=== PATIENT | female | born 1970 | race Caucasian/White ===

== ENCOUNTER 2019-06-28 11:36 | Emergency (ER) | payer MEDICARE, MEDICAID ==
[~2019-06-28] VITALS: Ht 149.9 cm; Wt 35.5 kg
[2019-06-28 11:52] VITALS: Ht 149.9 cm; Wt 35.5 kg
[2019-06-28] MEDS ORDERED: BIPOLAR MED (11:54)
[2019-06-28 12:32] VITALS: BP 104/63
== END 2019-06-28 12:51 | disposition home or self-care (01) ==
LOC: D.ER 11:36
DX: Z43.3 Encounter for attention to colostomy (principal)

== ENCOUNTER 2019-06-29 12:18 | Emergency (ER) | payer MEDICARE, MEDICAID ==
[~2019-06-29] VITALS: Ht 149.9 cm; Wt 36.5 kg
[~2019-06-29 12:18] MED LIST: BIPOLAR MED
[2019-06-29 12:24] VITALS: Ht 149.9 cm; Wt 36.5 kg
[2019-06-29 14:18] VITALS: BP 106/72
--- NOTE | 2019-06-30 13:40 | NUR ---
Late entry for 06/29/19 Patient returned to ER today for a colostomy bag. CM met with patient who had been given 2 colostomy bags 06/28/19. CM asked the patient who her PCP was that was ordering her supplies and she stated a physician in [place]. CM asked if she had contacted him to inform him she needed supplies ordered. She stated yes and her supplies will be here in August. CM infmored her that the ER was not able to supply her with colostomy bags everyday. She stated she knows. CM asked who her manufacturing helper for her supplies is and she told me [employer]. She gave CM permission to call on Monday to inquire about her supplies and what is needed to oanh her colostomy supplies to her before August. Pateint had multiple towels covered in feces, feces all in the floor, and feces contantly coming out of her ostomy. She has had her colostomy for 8 years and she said she knows how to care for her ostomy. CM spoke to human resources supervisor Tatiana Aguilera regarding situation and that I planend to call her ostomy company first thing on Monday AM. Patient is a resident at [facility]. CM is not sure how long she has been there but feel it is fairly recent as the courtesy car driver for her did not know her name when he showed up to pick her up. Cha Law RN, CCM
== END 2019-06-29 14:19 | disposition home or self-care (01) ==
LOC: D.ER 12:18
DX: Z43.3 Encounter for attention to colostomy (principal)

== ENCOUNTER 2019-09-20 13:33 | Emergency (ER) | payer MEDICARE ==
[2019-09-20 13:43] VITALS: Ht 149.9 cm
[2019-09-20 15:39] VITALS: BP 122/62
== END 2019-09-20 15:41 | disposition home or self-care (01) ==
LOC: D.ER 13:33
DX: Z43.3 Encounter for attention to colostomy (principal)

== ENCOUNTER 2019-10-02 13:59 | Emergency (ER) | payer MEDICARE ==
[~2019-10-02] VITALS: Ht 149.9 cm; Wt 38.6 kg
[2019-10-02 14:08] VITALS: BP 157/77; Ht 149.9 cm; Wt 38.6 kg
== END 2019-10-02 16:57 | disposition home or self-care (01) ==
LOC: D.ER 13:59
DX: Z43.3 Encounter for attention to colostomy (principal)

== ENCOUNTER 2019-12-14 18:13 | Emergency (ER) | payer OTHER, MEDICARE ==
[~2019-12-14] VITALS: Ht 149.9 cm; Wt 38.6 kg
[2019-12-14 18:19] VITALS: Ht 149.9 cm; Wt 38.6 kg
[2019-12-14 18:51] VITALS: BP 128/74
== END 2019-12-14 18:52 | disposition home or self-care (01) ==
LOC: D.ER 18:13
DX: T85.848A Pain due to other internal prosthetic devices, implants and grafts, initial encounter (principal)

== ENCOUNTER 2019-12-30 14:32 | Emergency (ER) | payer OTHER, MEDICARE ==
[~2019-12-30] VITALS: Ht 149.9 cm; Wt 34.1 kg
[2019-12-30 14:46] VITALS: BP 100/67; Ht 149.9 cm; Wt 34.1 kg
[2019-12-30] MEDS ORDERED: ABILIFY10 MG PO (14:47)
[2019-12-30 15:49] LABS: BASOPHILS 0.8 % (0-2); EOSINOPHILS 2.9 % (0-7); HEMATOCRIT 39.1 % (36.0-48.0); HEMOGLOBIN 11.4 g/dL (12-16); IMMATURE GRANULOCYTES 0.2 % (0-5); LYMPHOCYTES 36.6 % (15-50); MCH 24.6 pg (26.0-34.0); MCHC 29.2 g/dL (31.0-37.0); MCV 84.4 fL (80.0-100.0); MEAN PLATELET VOLUME 8.3 fL (7.4-10.4); MONOCYTES 10.2 % (2-11); NEUTROPHILS 49.3 % (40-80); PLATELET COUNT 443 10x3/uL (130-400); RBC 4.63 10x6/uL (4.00-5.40); WBC 6.6 10x3/uL (4.8-10.8)
[2019-12-30 16:03] LABS: CALC OSMOLALITY 277 mosm/kg (275-300); CALCIUM 9.1 mg/dL (8.5-10.1); CARBON DIOXIDE 25.6 mmol/L (21.0-32.0); CHLORIDE - SERUM 103 mmol/L (98-107); CREATININE - SERUM 0.6 mg/dL (0.6-1.3); GLUCOSE 88 mg/dL (74-106); POTASSIUM - SERUM 3.8 mmol/L (3.5-5.1); SODIUM 140 mmol/L (136-145); UREA NITROGEN 12 mg/dL (7-18); eGFR NON AFRICAN AMERICAN > 90 mL/min (90-120)
[2019-12-30] MEDS ORDERED: KEFLEX500 MG PO (16:35)
== END 2019-12-30 16:43 | disposition home or self-care (01) ==
LOC: D.ER 14:32
PROVIDERS: Family Medicine
DX: Z43.3 Encounter for attention to colostomy (principal); K94.09 Other complications of colostomy

== ENCOUNTER 2020-02-24 21:32 | Observation (INO) | payer MEDICARE ==
[~2020-02-24] VITALS: Ht 149.9 cm; Wt 36.3 kg
[~2020-02-24 21:32] MED LIST changes: +ABILIFY10 MG PO; +KEFLEX500 MG PO
[2020-02-24 22:27] LABS: BASOPHILS 0.4 % (0-2); EOSINOPHILS 2.4 % (0-7); HEMATOCRIT 38.9 % (36.0-48.0); HEMOGLOBIN 12.4 g/dL (12-16); IMMATURE GRANULOCYTES 0.1 % (0-5); LYMPHOCYTES 32.4 % (15-50); MCH 25.6 pg (26.0-34.0); MCHC 31.9 g/dL (31.0-37.0); MCV 80.2 fL (80.0-100.0); MEAN PLATELET VOLUME 8.9 fL (7.4-10.4); MONOCYTES 8.3 % (2-11); NEUTROPHILS 56.4 % (40-80); RBC 4.85 10x6/uL (4.00-5.40); WBC 7.9 10x3/uL (4.8-10.8)
[2020-02-24 22:31] LABS: APTT 42.1 SECONDS (22.8-39.4); INR 1.04 (0.85-1.17); PROTIME 13.5 SECONDS (11.6-15.0)
[2020-02-24 22:34] LABS: CALC OSMOLALITY 276 mosm/kg (275-300); CALCIUM 9.8 mg/dL (8.5-10.1); CARBON DIOXIDE 21.2 mmol/L (21.0-32.0); CHLORIDE - SERUM 106 mmol/L (98-107); CREATININE - SERUM 0.8 mg/dL (0.6-1.3); GLUCOSE 89 mg/dL (74-106); POTASSIUM - SERUM 5.1 mmol/L (3.5-5.1); SODIUM 138 mmol/L (136-145); UREA NITROGEN 19 mg/dL (7-18); eGFR NON AFRICAN AMERICAN 80 mL/min (90-120)
[2020-02-24 22:45] LABS: PLATELET COUNT 335 10x3/uL (130-400)
[2020-02-24 22:49] LABS: ALKALINE PHOSPHATASE 64 U/L (30-120); ALT (SGPT) 18 U/L (10-68); BILIRUBIN - TOTAL 0.25 mg/dL (0.2-1.3); C-REACTIVE PROTEIN 0.5 mg/dL (0.0-0.9); CREATINE KINASE 148 UL (21-215); LIPASE 160 U/L (73-393); MAGNESIUM - SERUM 1.7 mg/dL (1.8-2.4); PRO BNP 147 pg/mL (0-125); PROTEIN - SERUM 8.2 g/dL (6.4-8.2); THYROID STIMULATING HORMONE 0.81 uIU/mL (0.36-3.74); TROPONIN-I < 0.017 ng/mL (0.000-0.060)
--- NOTE | 2020-02-24 23:37 | NUR ---
RN ADMINISTERED ATIVAN ORDERED. PT TOLERATED WELL. PT PROVIDED ABD PAD TO ABSORB GASTRIC CONTENTS. EDP ADVISED NOT TO APPLY NEW COLOSTOMY BAG D/T REDNESS AND TENDERNESS TO SITE
[2020-02-25 00:12] LABS: BILIRUBIN NEGATIVE (NEGATIVE); GLUCOSE NEGATIVE (NEGATIVE); KETONE NEGATIVE (NEGATIVE); NITRITE NEGATIVE (NEGATIVE); SPECIFIC GRAVITY 1.025 (1.005-1.020); UROBILINOGEN NORMAL (NORMAL)
[2020-02-25 00:19] LABS: UDS - AMPHET NEGATIVE QUAL (NEGATIVE); UDS - BARB NEGATIVE QUAL (NEGATIVE); UDS - BENZO NEGATIVE QUAL (NEGATIVE); UDS - COCAINE NEGATIVE QUAL (NEGATIVE); UDS - OPIATE NEGATIVE QUAL (NEGATIVE); UDS - PCP NEGATIVE QUAL (NEGATIVE); UDS - THC NEGATIVE QUAL (NEGATIVE)
--- NOTE | 2020-02-25 00:55 | NUR ---
PT RETURNED TO ED VIA WC FROM CT. PT PROVIDED NEW GOWN, LINENS CHANGED. PT DROWSY AFTER RECEIVING IV ATIVAN.
[2020-02-25 01:07] VITALS: BP 115/61
[2020-02-25 03:54] VITALS: BP 100/59; BMI 16.2
--- NOTE | 2020-02-25 08:40 | NUR ---
PT RESTLESS IN BED, MOANING LOUDLY. ASSESSED PT OSTOMY SITE TO RIGHT ABDOMEN PT DESCRIBES EXCRUTIATING PAIN. AREA AROUND STOMA BRIGHT RED WITH OPEN AREAS NOTED TO SKIN. OSTOMY PRODUCING LIQUID GREEN STOOL AT THIS TIME. CLEANED SITE WELL, APPLIED DRESSING OVER AREA. CONTACTED WOUND NURSE FOR ASSESSMENT AND RECOMMENDATION FOR DRESSING SITE OR APPROPRIATE OSTOMY DRESSING. EXPLAINED TO PT. PT VOICES UNDERSTANDING. CL WITHIN REACH. ENCOURAGED TO CALL WITH NEEDS.
[2020-02-25 09:01] VITALS: BP 108/56
[2020-02-25 10:08] LABS: BASOPHILS 0.8 % (0-2); EOSINOPHILS 3.6 % (0-7); HEMATOCRIT 39.6 % (36.0-48.0); HEMOGLOBIN 12.3 g/dL (12-16); LYMPHOCYTES 38.6 % (15-50); MCH 25.3 pg (26.0-34.0); MCHC 31.1 g/dL (31.0-37.0); MCV 81.5 fL (80.0-100.0); MEAN PLATELET VOLUME 8.5 fL (7.4-10.4); MONOCYTES 8.6 % (2-11); NEUTROPHILS 48.4 % (40-80); PLATELET COUNT 306 10x3/uL (130-400); RBC 4.86 10x6/uL (4.00-5.40); RDW 15.9 % (11.5-14.5)
--- NOTE | 2020-02-25 10:30 | NUR ---
WOUND NURSE HERE AND APPLIED APPROPRIATE COLOSTOMY BAG TO PT OSTOMY SITE.
--- NOTE | 2020-02-25 11:56 | NUR ---
DR. LING AT BEDSIDE WITH STEPHEN LI APN. ENTERED PT ROOM TO ADMINISTER PRESCRIBED PAIN MED. PT RESTLESS, AND MOANING AGAIN OSTOMY BAG IS LEAKING. VOICES BURNING TO AREA. PAIN MEDICATION ADMINISTERED. VERBAL ORDER RECEIVED FOR SURGICAL CONSULT.
--- NOTE | 2020-02-25 12:25 | NUR ---
WOUND NURSE AT BEDSIDE TO REAPPLY OSTOMY BAG. PT VOICES DECREASED PAIN AT THIS TIME, "ITS NOT THAT BAD LONG THE POOP IS GETTING ON MY SKIN." WILL CONTINUE TO REASSESS FOR PAIN
--- NOTE | 2020-02-25 12:29 | NUR ---
EXCORIATED SKIN NOTED AROUND STOMA ON RIGHT LOWER ABD QUAD. SKIN IS RED, IRRITATED AND RAW. PT SAYS IT IS DUE TO NOT HAVING OSTOMY SUPPLIES. AREA CLEANSED AND PATTED DRY. APPLIED NONSTING SKIN PROTECTANT AND STOMA POWDER AND APPLIED NEW WAFER, EAKON RING, BAG AND BARRIER EXTENDERS. PT IS CONTINUALLY "BEARING DOWN", EXTENDING HER ABDOMEN AND YELLING. AFTER APPROX 20 MIN PT YELLING AGAIN STATING "IT'S LEAKING". ENTIRE APPLIANCE REMOVED AND DISCARDED. SKIN CLEANSED AND DRIED. PT REFUSED SKIN PROTECTANT BUT ALLOWED POWDER. EAKON RING, WAFER, BAG AND BARRIER EXTENDERS APPLIED ALONG WITH A SMALL HEATING PAD OVER AREA TO ENHANCE ADHESION. WOUND CARE CONTINUES TO MONITOR.
[2020-02-25 12:37] VITALS: BP 116/47
[2020-02-25 13:12] VITALS: BMI 16.1
--- NOTE | 2020-02-25 14:55 | MORECARE ---
CASE MANAGEMENT DISCHARGE SUMMARY PATIENT: SHILPA ORO UNIT: [id number] ADM DATE: 02/25/20 AGE: 49 : 68 SEX: F ROOM/BED: D.2201 AUTHOR: GABBY GEE PHYSICIAN: REFERRING PHYSICIAN: HEATHER LING DO DATE OF SERVICE: 02/25/20 Discharge Plan Patient Name: SHILPA ORO [facility] [facility] 1970 Planned Disposition: Anticipated Discharge Date: Discharge Date: Expected LOS: Initial Reviewer: [email or web address] Initial Review Date: 02/25/2020 Generated: 02/25/20 3:55 pm Comments DCP- Discharge Planning Updated by [email or web address]: Juju Badillo on 02/25/20 1:[address] Per EHR, ARIANNA Lentz explained and signed with patient. Copy in chart Coverage Notice Reviewer: [id number] - Juju Badillo Notice Issued Date-Time: 02/25/2020 14:45 Notice Type: Medicare Outpatient Observation Notice Notice Delivered To: Patient Relationship to Patient: Containers Sales Representative Name: Delivery Method: HAND - Hand Delivered Essence Days: Prior Verbal Notification: Recipient Understood Notice: Yes Recipient Signature: Yes Med Rec Note Co-signed by Attending: Coverage Notice Comment: arianna explained and given Patient Name: SHILPA ORO Page [id number] at 1455 All edits/amendments must be made on the electronic document DICTATION DATE: 02/25/20 145 TOP CASE ASSEMBLER: ODILON 02/25/20 1455 RPT#: [id number] DC DATE: STATUS: ADM IN [facility] [address] [place] [address] END OF REPORT
[2020-02-25 16:47] VITALS: BP 161/87
[2020-02-25 18:16] VITALS: Ht 149.9 cm; Wt 36.3 kg
[2020-02-25 20:00] VITALS: BP 119/83
[2020-02-26] VITALS: BP 113/62
--- NOTE | 2020-02-26 01:49 | NUR ---
0N ARRIVAL TO FLOOR FOUND PATIENT IN [place] CRYING ASSISTED BACK TO ROOM.STATES I TOOK IT OFF HURTS TO BAD WHEN BAG IS ON. LINENS/GOWN CHGED.DISCUSSED IMPORTANCE OF KEEPING BAG ON NOT TO LET DRAINAGE GET ON UNEFFECTIVE SKIN AND START NEW IRRITATED AREAS STATES IT HURTS. WILL CONTINUE TO MONITOR AND FOLLOW CURRENT PLAN OF CARE
[2020-02-26 04:00] VITALS: BP 110/59
[2020-02-26 05:23] LABS: BASOPHILS 0.4 % (0-2); EOSINOPHILS 3.7 % (0-7); HEMATOCRIT 39.8 % (36.0-48.0); HEMOGLOBIN 12.2 g/dL (12-16); IMMATURE GRANULOCYTES 0.1 % (0-5); LYMPHOCYTES 33.2 % (15-50); MCH 24.8 pg (26.0-34.0); MCHC 30.7 g/dL (31.0-37.0); MCV 81.1 fL (80.0-100.0); MEAN PLATELET VOLUME 9.3 fL (7.4-10.4); MONOCYTES 10.4 % (2-11); NEUTROPHILS 52.2 % (40-80); PLATELET COUNT 265 10x3/uL (130-400); RBC 4.91 10x6/uL (4.00-5.40); RDW 15.9 % (11.5-14.5)
[2020-02-26 05:34] LABS: ALBUMIN 3.9 g/dL (3.4-5.0); ALKALINE PHOSPHATASE 62 U/L (30-120); ALT (SGPT) 16 U/L (10-68); BILIRUBIN - TOTAL 0.07 mg/dL (0.2-1.3); CARBON DIOXIDE 20.4 mmol/L (21.0-32.0); CHLORIDE - SERUM 108 mmol/L (98-107); CREATININE - SERUM 0.8 mg/dL (0.6-1.3); GLUCOSE 101 mg/dL (74-106); MAGNESIUM - SERUM 1.8 mg/dL (1.8-2.4); PROTEIN - SERUM 7.4 g/dL (6.4-8.2); SODIUM 140 mmol/L (136-145); eGFR NON AFRICAN AMERICAN 80 mL/min (90-120)
[2020-02-26 05:37] LABS: CALC OSMOLALITY 283 mosm/kg (275-300); POTASSIUM - SERUM 3.8 mmol/L (3.5-5.1); UREA NITROGEN 27 mg/dL (7-18)
--- NOTE | 2020-02-26 07:00 | NUR ---
PT RESTING IN BED. NO OSTOMY BAG TO OSTOMY SITE AT THIS TIME. PT HOLDING ABD PAD OVER AREA TO CATCH STOOL. EDUCATED PT REGARDING COLOSTOMY BAG, PT DENIES WISHES FOR BAG AT THIS TIME, SHE VOICES THEY DON'T SEEM TO BE WORKING, THE BAG STARTS LEAKING. INFORMED HER STAFF WOULD TALK TO WOUND NURSE REGARDING MATTER TO ATTEMPT TO FIND A BETTER FITTING METHOD TO PREVENT FURTHER SKIN IRRITATION. PT VOICES UNDERSTANDING. SALINE LOC TO LEFT FOREARM. SITE WITHOUT REDNESS OR EDEMA. REPORTS PAIN 3/10 AT THIS TIME. DENIES FURTHER NEEDS AT THIS TIME. CL WITHIN REACH. ENCOURAGED TO CALL WITH NEEDS. CONTINUE POC
[2020-02-26 09:10] VITALS: BP 104/58
--- NOTE | 2020-02-26 10:15 | NUR ---
PT IV TO LEFT FOREARM LEAKING AND PUFFY AT SITE. IV D/C'D. IV RESITED TO RIGHT FOREARM X 2 STICKS. GOOD BLOOD RETURN, EASILY FLUSHES. DENIES FURTHER NEEDS A THIS TIME. CL WITHIN REACH.
[2020-02-26] MEDS ORDERED: NICODERM CQ1 EAC3 TRANSDERM (10:45)
--- NOTE | 2020-02-26 12:10 | NUR ---
PT RESTING QUIETLY IN BED. COLOSTOMY BAG REMAINS INTACT TO RIGHT ABDOMEN WALL, DRAINING GREEN BILE. PT REQUEST DRINK AT THIS TIME. WATER AND LEMON [place] DRINK PROVIDED
--- NOTE | 2020-02-26 12:13 | NUR ---
Upon checking pt this morning, noted ostomy appliance was off and pt and her bed covered in green liquid feces. She was cleaned up, new gown and linens provided. Skin surrounding stoma is red but is not as angry red as yesterday. Applied skin barrier, powder x 3 and allowed to dry. Then mixed paste with powder and applied to wafer with adhesive to skin surrounding stoma. Cut wafer to 1-1/4" and applied to skin. Pt stated it burned, but settled down and allowed completion of application. Pt states she uses [employer] for supplies at home. [facility] was called and a prescription faxed to their office. Wound care continues to monitor.
[2020-02-26] MEDS ORDERED: HYDROCODON-ACE1 EAC7 PO (13:17)
--- NOTE | 2020-02-26 14:18 | MORECARE ---
CASE MANAGEMENT DISCHARGE SUMMARY PATIENT: SHILPA ORO UNIT: [id number] ADM DATE: 02/25/20 AGE: 49 : 68 SEX: F ROOM/BED: D.2201 AUTHOR: GABBY GEE PHYSICIAN: REFERRING PHYSICIAN: HEATHER LING DO DATE OF SERVICE: 02/26/20 Discharge Plan Patient Name: SHILPA ORO [facility] [facility] 1970 Planned Disposition: Home Health Service Anticipated Discharge Date: Discharge Date: Expected LOS: Initial Reviewer: [email or web address] Initial Review Date: 02/25/2020 Generated: 02/26/20 3:18 pm Comments DCP- Discharge Planning Updated by [email or web address]: Juju Badillo on 02/25/20 1:[address] Per EHR, ARIANNA Lentz explained and signed with patient. Copy in chart Coverage Notice Reviewer: [id number] - Juju Badillo Notice Issued Date-Time: 02/25/2020 14:45 Notice Type: Medicare Outpatient Observation Notice Notice Delivered To: Patient Relationship to Patient: Clinical Psychology Professor Name: Delivery Method: HAND - Hand Delivered Essence Days: Prior Verbal Notification: Recipient Understood Notice: Yes Recipient Signature: Yes Med Rec Note Co-signed by Attending: Coverage Notice Comment: arianna explained and given Last DP export: 02/25/20 1:55 p Patient Name: SHILPA ORO Page 54081 at 1418 All edits/amendments must be made on the electronic document DICTATION DATE: 02/26/208 PHARMACEUTICAL DETAILER: ODILON 02/26/20 1418 RPT#: [id number] DC DATE: STATUS: ADM IN [facility] [address] [place] [address] END OF REPORT
--- NOTE | 2020-02-26 14:31 | MORECARE ---
CASE MANAGEMENT DISCHARGE SUMMARY PATIENT: SHILPA ORO UNIT: [id number] ADM DATE: 02/25/20 AGE: 49 : 68 SEX: F ROOM/BED: D.2201 AUTHOR: GABBY GEE PHYSICIAN: REFERRING PHYSICIAN: HEATHER LING DO DATE OF SERVICE: 02/26/20 Discharge Plan Patient Name: SHILPA ORO Facility: [facility] : 1970 Planned Disposition: Home Health Service Anticipated Discharge Date: Discharge Date: Expected LOS: Initial Reviewer: [email or web address] Initial Review Date: 02/25/2020 Generated: 02/26/20 3:30 pm Comments DCP- Discharge Planning Updated by [email or web address]: Juju Badillo on 02/25/20 1:[address] Per EHR, ANA Lentz explained and signed with patient. Copy in chart DCPIA - Discharge Planning Initial Assessment Updated by [email or web address]: Juju Badillo on 02/26/20 2:29 pm * Is the patient Alert and Oriented? Yes * How many steps to enter\exit or inside your home? * PCP ELIZA * Pharmacy [facility] * Pread[facility] * Facility Name [facility] * ADLs Independent * Equipment Ostomy Supplies * List name and contact numbers for known caregivers / representatives who currently or will assist patient after discharge: SLADE [phone] * Verbal permission to speak to the caregivers and representatives has been obtained from the patient. N/A * Community resources currently utilized None * Additional services required to return to the preadmission environment? Yes * Can the patient safely return to the preadmission environment? Yes * Has this patient been hospitalized within the prior 30 days at any hospital? No Coverage Notice Reviewer: [id number] - Juju Badillo Notice Issued Date-Time: 02/25/2020 14:45 Notice Type: Medicare Outpatient Observation Notice Notice Delivered To: Patient Relationship to Patient: Jig Mill Operator Name: Delivery Method: HAND - Hand Delivered Essence Days: Prior Verbal Notification: Recipient Understood Notice: Yes Recipient Signature: Yes Med Rec Note Co-signed by Attending: Coverage Notice Comment: keller explained and given Last DP export: 02/26/20 1:18 p Patient Name: SHILPA ORO Page [phone] at 1431 All edits/amendments must be made on the electronic document DICTATION DATE: 02/26/201429 FURNACE DOOR TENDER: ODILON 02/26/201429 RPT#: [id number] DC DATE: STATUS: ADM IN [facility] [address] [place] [address] END OF REPORT
--- NOTE | 2020-02-26 14:39 | MORECARE ---
CASE MANAGEMENT DISCHARGE SUMMARY PATIENT: SHILPA ORO UNIT: [id number] ADM DATE: 02/25/20 AGE: 49 : 68 SEX: F ROOM/BED: D.2201 AUTHOR: GABBY GEE PHYSICIAN: REFERRING PHYSICIAN: HEATHER LING DO DATE OF SERVICE: 02/26/20 Discharge Plan Patient Name: SHILPA ORO Facility: [facility]:[place] : 1970 Planned Disposition: Home Health Service Anticipated Discharge Date: Discharge Date: Expected LOS: Initial Reviewer: [email or web address] Initial Review Date: 02/25/2020 Generated: 02/26/20 3:38 pm Comments DCP- Discharge Planning Updated by [email or web address]: Juju Badillo on 02/26/20 1:[address] Patient Name: SHILPA ORO Admission Status: ER Accout number: [id number] Admission Date: 02-25-2020 : 1970 Admission Diagnosis: Attending: HEATHER LING Current LOS: 1 Anticipated DC Date: Planned Disposition: Home Health Service Primary Insurance: [facility] MEDICARE SOLUTIONS Discharge Planning Comments: CM met with patient to complete initial dc planning assessment. CM educated patient on the CM role and verbal consent given by patient to complete assessment. Patient lives at a assisted off [facility] where she is independent with her care. At discharge patient plans to return home and feels this is a safe discharge. CM discussed availability of home health, rehab services, and medical equipment. She uses [facility] ostomy supplies and [facility] has spoken with her at length and has ordered and spoke with Andrew for what exactly the patient needs. We spoke about home health, but [facility] did not think that she needed it & the patient did not want to mess up her Ostomy supplies and home health would pause [facility]. Patient stated that " Sadiq" would be her motor driver home, and Slade [phone] can also get ahold of him, Patient denied known discharge needs at this time. CM will continue to follow and will assist as needed with dc plans/needs. Special Education Teacher: Juju Badillo DCP- Discharge Planning Updated by [email or web address]: Juju Badillo on 02/25/20 1:[address] Per EHR, ARIANNA Lentz explained and signed with patient. Copy in chart DCPIA - Discharge Planning Initial Assessment Updated by [email or web address]: Juju Badillo on 02/26/20 2:29 pm * Is the patient Alert and Oriented? Yes * How many steps to enter\\exit or inside your home? * PCP ELIZA * Pharmacy [facility] * Preadmission Environment [facility] * Facility Name [facility] * ADLs Independent * Equipment Ostomy Supplies * List name and contact numbers for known caregivers / representatives who currently or will assist patient after discharge: SLADE [phone] * Verbal permission to speak to the caregivers and representatives has been obtained from the patient. N/A * Community resources currently utilized None * Additional services required to return to the preadmission environment? Yes * Can the patient safely return to the preadmission environment? Yes * Has this patient been hospitalized within the prior 30 days at any hospital? No Coverage Notice Reviewer: [id number] - Juju Badillo Notice Issued Date-Time: 02/25/2020 14:45 Notice Type: Medicare Outpatient Observation Notice Notice Delivered To: Patient Relationship to Patient: Knife Setter Grinder Machine Name: Delivery Method: HAND - Hand Delivered Essence Days: Prior Verbal Notification: Recipient Understood Notice: Yes Recipient Signature: Yes Med Rec Note Co-signed by Attending: Coverage Notice Comment: arianna explained and given Last DP export: 02/26/20 1:31 p Patient Name: SHILPA ORO Page [phone] at 1439 All edits/amendments must be made on the electronic document DICTATION DATE: 02/26/201437 ROLLER INSPECTOR AND MENDER: ODILON 02/26/201437 RPT#: [id number] DC DATE: STATUS: ADM IN [facility] [address] [place] [address] END OF REPORT
--- NOTE | 2020-02-27 09:06 | MORECARE ---
CASE MANAGEMENT DISCHARGE SUMMARY PATIENT: SHILPA ORO UNIT: [id number] ADM DATE: 02/25/20 AGE: 49 : 68 SEX: F ROOM/BED: D.2201 AUTHOR: MARLENDOC PHYSICIAN: REFERRING PHYSICIAN: HEATHER LING DO DATE OF SERVICE: 02/27/20 Discharge Plan Patient Name: SHILPA ORO Facility: [facility]:[place] : 1970 Planned Disposition: Home Health Service Anticipated Discharge Date: Discharge Date: 02/26/2020 Expected LOS: Initial Reviewer: [email or web address] Initial Review Date: 02/25/2020 Generated: 02/27/20 10:06 am Comments DCP- Discharge Planning Updated by [email or web address]: Juju Badillo on 02/26/20 1:[address] Patient Name: SHILPA ORO Admission Status: ER Accout number: [id number] Admission Date: 02-25-2020 : 1970 Admission Diagnosis: Attending: HEATHER LING Current LOS: 1 Anticipated DC Date: Planned Disposition: Home Health Service Primary Insurance: [facility] MEDICARE SOLUTIONS Discharge Planning Comments: CM met with patient to complete initial dc planning assessment. CM educated patient on the CM role and verbal consent given by patient to complete assessment. Patient lives at a jail off [facility] where she is independent with her care. At discharge patient plans to return home and feels this is a safe discharge. CM discussed availability of home health, rehab services, and medical equipment. She uses [facility] ostomy supplies and [facility] has spoken with her at length and has ordered and spoke with [facility] for what exactly the patient needs. We spoke about home health, but [facility] did not think that she needed it & the patient did not want to mess up her Ostomy supplies and home health would pause [facility]. Patient stated that " Nenabolibby" would be her team driver home, and Patricia [phone] can also get ahold of him, Patient denied known discharge needs at this time. CM will continue to follow and will assist as needed with dc plans/needs. Preparer Samples And Repairs: Juju Badillo DCP- Discharge Planning Updated by [email or web address]: Juju Badillo on 02/25/20 1:[address] Per EHR, ARIANNA Lentz explained and signed with patient. Copy in chart DCPIA - Discharge Planning Initial Assessment Updated by [email or web address]: Juju Badillo on 02/26/20 2:29 pm * Is the patient Alert and Oriented? Yes * How many steps to enter\\exit or inside your home? * PCP ELIZA * Pharmacy [facility] * Preadmission Environment [facility] * Facility Name [facility] * ADLs Independent * Equipment Ostomy Supplies * List name and contact numbers for known caregivers / representatives who currently or will assist patient after discharge: PATRICIA [phone] * Verbal permission to speak to the caregivers and representatives has been obtained from the patient. N/A * Community resources currently utilized None * Additional services required to return to the preadmission environment? Yes * Can the patient safely return to the preadmission environment? Yes * Has this patient been hospitalized within the prior 30 days at any hospital? No Coverage Notice Reviewer: [id number] - Juuj Badillo Notice Issued Date-Time: 02/25/2020 14:45 Notice Type: Medicare Outpatient Observation Notice Notice Delivered To: Patient Relationship to Patient: White Shoe Examiner Name: Delivery Method: HAND - Hand Delivered Essence Days: Prior Verbal Notification: Recipient Understood Notice: Yes Recipient Signature: Yes Med Rec Note Co-signed by Attending: Coverage Notice Comment: arianna explained and given Last DP export: 02/26/20 1:39 p Patient Name: SHILPA ORO Page [phone] at 0906 All edits/amendments must be made on the electronic document DICTATION DATE: 02/27/20905 TEACHERS ASSISTANT: ODILON 02/27/20905 RPT#: [id number] DC DATE:02/26/20 STATUS: DIS IN [facility] [address] [place] [address] END OF REPORT
== END 2020-02-26 16:44 | disposition home or self-care (01) ==
LOC: D.ER 21:32 → D.MS 02-25 01:27 → OBSVTIME 02-25 01:27 → D.MS 02-26 16:44
PROVIDERS: Family Medicine; ADMIT Family Medicine; ATTEND Family Medicine
DX: L03.90 Cellulitis, unspecified (principal); R62.7 Adult failure to thrive; Z68.1 Body mass index [BMI] 19.9 or less, adult; R64 Cachexia; K76.9 Liver disease, unspecified; E83.42 Hypomagnesemia; K94.02 Colostomy infection

== ENCOUNTER 2020-03-03 17:55 | Emergency (ER) | payer MEDICARE ==
[~2020-03-03] VITALS: Ht 149.9 cm; Wt 34.1 kg
[~2020-03-03 17:55] MED LIST changes: +HYDROCODON-ACE1 EAC7 PO; +NICODERM CQ1 EAC3 TRANSDERM
[2020-03-03 18:26] VITALS: Ht 149.9 cm; Wt 34.1 kg
[2020-03-03 22:36] VITALS: BP 100/60
== END 2020-03-03 22:35 | disposition home or self-care (01) ==
LOC: D.ER 17:55
DX: R44.0 Auditory hallucinations (principal); R44.1 Visual hallucinations; Z43.3 Encounter for attention to colostomy

== ENCOUNTER 2020-03-07 13:23 | Emergency (ER) | payer MEDICARE ==
[~2020-03-07] VITALS: Ht 149.9 cm; Wt 34.1 kg
[2020-03-07 13:27] VITALS: Ht 149.9 cm; Wt 34.1 kg
[2020-03-07 14:39] LABS: BASOPHILS 0.6 % (0-2); EOSINOPHILS 3.3 % (0-7); HEMOGLOBIN 13.3 g/dL (12-16); IMMATURE GRANULOCYTES 0.1 % (0-5); LYMPHOCYTES 34.3 % (15-50); MCH 25.5 pg (26.0-34.0); MCHC 30.9 g/dL (31.0-37.0); MCV 82.5 fL (80.0-100.0); MEAN PLATELET VOLUME 8.4 fL (7.4-10.4); MONOCYTES 9.7 % (2-11); PLATELET COUNT 394 10x3/uL (130-400); RBC 5.21 10x6/uL (4.00-5.40); RDW 15.9 % (11.5-14.5); WBC 6.9 10x3/uL (4.8-10.8)
[2020-03-07 14:51] LABS: CALCIUM 9.3 mg/dL (8.5-10.1); CARBON DIOXIDE 25.3 mmol/L (21.0-32.0); CREATININE - SERUM 0.9 mg/dL (0.6-1.3); POTASSIUM - SERUM 3.3 mmol/L (3.5-5.1)
[2020-03-07 14:57] LABS: ALBUMIN 4.8 g/dL (3.4-5.0); BILIRUBIN - TOTAL 0.31 mg/dL (0.2-1.3); PROTEIN - SERUM 9.2 g/dL (6.4-8.2)
[2020-03-07] MEDS ORDERED: KEFLEX500 MG PO (15:06)
[2020-03-07 15:17] VITALS: BP 128/72
== END 2020-03-07 15:18 | disposition home or self-care (01) ==
LOC: D.ER 13:23
PROVIDERS: Family Medicine
DX: L03.311 Cellulitis of abdominal wall (principal); T85.9XXA Unspecified complication of internal prosthetic device, implant and graft, initial encounter; E87.6 Hypokalemia; T14.8XXA Other injury of unspecified body region, initial encounter

== ENCOUNTER 2020-03-08 12:09 | Inpatient (IN) | payer MEDICARE ==
[~2020-03-08] VITALS: Ht 149.9 cm; Wt 37.3 kg
[2020-03-08 15:49] LABS: BASOPHILS 0.7 % (0-2); EOSINOPHILS 2.6 % (0-7); HEMATOCRIT 40.2 % (36.0-48.0); HEMOGLOBIN 12.3 g/dL (12-16); IMMATURE GRANULOCYTES 0.1 % (0-5); LYMPHOCYTES 29.3 % (15-50); MCH 25.3 pg (26.0-34.0); MCHC 30.6 g/dL (31.0-37.0); MCV 82.7 fL (80.0-100.0); MEAN PLATELET VOLUME 8.4 fL (7.4-10.4); MONOCYTES 8.7 % (2-11); NEUTROPHILS 58.6 % (40-80); PLATELET COUNT 387 10x3/uL (130-400); RBC 4.86 10x6/uL (4.00-5.40)
--- NOTE | 2020-03-08 15:53 | NUR ---
ABD CLEAN, AND COLOSTOMY APPLIANCE CHANGED. PT TOLERATED WELL.
[2020-03-08 15:59] LABS: CALC OSMOLALITY 278 mosm/kg (275-300); CARBON DIOXIDE 25.8 mmol/L (21.0-32.0); CHLORIDE - SERUM 103 mmol/L (98-107); CREATININE - SERUM 0.7 mg/dL (0.6-1.3); GLUCOSE 106 mg/dL (74-106); POTASSIUM - SERUM 3.6 mmol/L (3.5-5.1); SODIUM 138 mmol/L (136-145); UREA NITROGEN 21 mg/dL (7-18); eGFR NON AFRICAN AMERICAN > 90 mL/min (90-120)
[2020-03-08 16:05] LABS: ALBUMIN 4.5 g/dL (3.4-5.0); ALKALINE PHOSPHATASE 64 U/L (30-120); ALT (SGPT) 17 U/L (10-68); BILIRUBIN - TOTAL 0.15 mg/dL (0.2-1.3); PROTEIN - SERUM 8.7 g/dL (6.4-8.2)
--- NOTE | 2020-03-08 17:58 | NUR ---
PATIENT PROVIDED WITH MEAL TRAY
[2020-03-08 21:04] VITALS: BP 145/81
--- NOTE | 2020-03-08 22:00 | NUR ---
A&O X 4, AMBULATES INDEPENDENTLY. WEIGHT 82.8LBS. REQUESTS CRACKERS AND SODA. DENIES PAIN/NEEDS AT THIS TIME, CTM.
[2020-03-08 22:45] VITALS: BP 103/74
--- NOTE | 2020-03-09 02:00 | NUR ---
PT INSISTS BEING REMOVED FROM FLUIDS. PT ITCHING LEGS AND SIDES(NO RASH/REDNESS), STATES IT'S FROM THE IV. PAUSED FLUIDS. INSTRUCTED PT WE COULD CALL FOR EVAN IF SHE IS ITCHING. PT WISHES TO STAY OFF FLUIDS BECAUSE ITCHING HAS STOPPED.
[2020-03-09 04:00] VITALS: BP 100/53
[2020-03-09 04:56] VITALS: BP 145/81; Ht 149.9 cm; Wt 37.3 kg
[2020-03-09 05:09] LABS: BASOPHILS 0.6 % (0-2); EOSINOPHILS 4.2 % (0-7); HEMATOCRIT 33.5 % (36.0-48.0); HEMOGLOBIN 10.1 g/dL (12-16); IMMATURE GRANULOCYTES 0.2 % (0-5); LYMPHOCYTES 42.4 % (15-50); MCH 24.8 pg (26.0-34.0); MCHC 30.1 g/dL (31.0-37.0); MCV 82.1 fL (80.0-100.0); MEAN PLATELET VOLUME 8.5 fL (7.4-10.4); MONOCYTES 10.9 % (2-11); NEUTROPHILS 41.7 % (40-80); RBC 4.08 10x6/uL (4.00-5.40); RDW 15.9 % (11.5-14.5)
[2020-03-09 05:16] LABS: PLATELET COUNT 280 10x3/uL (130-400)
[2020-03-09 05:17] LABS: CALC OSMOLALITY 276 mosm/kg (275-300); CALCIUM 7.9 mg/dL (8.5-10.1); CARBON DIOXIDE 24.1 mmol/L (21.0-32.0); CHLORIDE - SERUM 103 mmol/L (98-107); CREATININE - SERUM 0.7 mg/dL (0.6-1.3); GLUCOSE 106 mg/dL (74-106); POTASSIUM - SERUM 3.3 mmol/L (3.5-5.1); SODIUM 137 mmol/L (136-145); UREA NITROGEN 21 mg/dL (7-18); eGFR NON AFRICAN AMERICAN > 90 mL/min (90-120)
--- NOTE | 2020-03-09 06:50 | NUR ---
A&O RESTING IN BED WITH EYES OPEN. NO C/O PAIN. NO S/S OF ACUTE DISTRESS NOTED. COLOSTOMY TO ABDOMEN. IV TO RIGHT FOREARM, SL. PATIENT STATED SHE STARTS ITCHING WHEN THE FLUIDS ARE INFUSING. SITE PATENT WITHOUT REDNESS OR SWELLING. POTASSIUM 3.3 THIS AM. SCDS PRESENT. DENIES ANY NEEDS AT THIS TIME. CALL LIGHT IN REACH. WILL CONTINUE TO MONITOR.
[2020-03-09] MEDS ORDERED: NYSTATIN OINTME15 GM TOPICAL (07:46)
[2020-03-09] MEDS ORDERED: KEFLEX500 MG PO (07:48)
[2020-03-09 09:12] VITALS: BP 93/52
--- NOTE | 2020-03-09 11:20 | NUR ---
I have reviewed this patient and I concur with the Shift Assessment completed by the Licensed Practical Nurse today this shift.
[2020-03-09 12:38] VITALS: BP 117/71
--- NOTE | 2020-03-09 15:38 | NUR ---
PERISTOMAL SKIN IS RED AND IRRITATED. STOMA IS SHINY RED/HEALTHY. PT CRYING OUT BECAUSE LIQUID STOOL IS IRRITATING SKIN DUE TO OSTOMY WAFER BEING HALF WAY REMOVED. CLEANSED SURROUNDING SKIN WITH WASH CLOTH AND WATER AND PATTED DRY. APPLIED CAVILON SKIN PREP FOLLOWED BY STOMA POWDER AND REPEATED. STOMA MEASURES 1-1/8". WAFER CUT TO SIZE BUT PT REFUSES TO ALLOW STOMA PASTE TO BE APPLIED BECAUSE IT ZURITA. IT IS NECESSARY TO USE PASTE DUE TO THE UNEVEN SKIN AROUND STOMA. WAFER APPLIED WITHOUT PASTE. EXPLAINED TO PT THE WAFER WILL LEAK AND SKIN WILL CONTINUE TO BE IRRITATED IF SHE DOESN'T USE OR ALLOW US TO USE THE NEEDED PRODUCTS. SHE VOICED UNDERSTANDING.
--- NOTE | 2020-03-09 16:32 | MORECARE ---
CASE MANAGEMENT DISCHARGE SUMMARY PATIENT: SHILPA ORO UNIT: [id number] ADM DATE: 03/08/20 AGE: 49 : 68 SEX: F ROOM/BED: D.2216 AUTHOR: GABBY GEE PHYSICIAN: REFERRING PHYSICIAN: LOS PARDO MD DATE OF SERVICE: 03/09/20 Discharge Plan Patient Name: SHILPA ORO Facility: [facility]:[place] : 1970 Planned Disposition: Anticipated Discharge Date: Discharge Date: Expected LOS: Initial Reviewer: [id number] Initial Review Date: 03/08/2020 Generated: 03/09/20 5:31 pm Comments DCP- Discharge Planning Updated by [email or web address]: Eleonora Corrales on 03/09/20 3:[address] Patient Name: SHILPA ORO Admission Status: ER Accout number: [id number] Admission Date: 03-08-2020 : 1970 Admission Diagnosis: Attending: LOS PARDO Current LOS: 1 Anticipated DC Date: Planned Disposition: Primary Insurance: [facility] MEDICARE SOLUTIONS Discharge Planning Comments: Patient lives at a skilled nursing off [facility] where she is independent with her care. At discharge patient plans to return home and feels this is a safe discharge. CM discussed availability of home health, rehab services, and medical equipment. She uses [facility] ostomy supplies. DIANA RN WITH WOUND CARE SPOKE WITH PATIENT. WE ARE SENDING HER HOME WITH SEVERAL DAYS OF SUPPLIES. SHE IS CURRENTLY GETTING SUPPLIES FROM [employer] BUT SEEMS TO BE USING ALOT MORE SUPPLIES THAN SHE SHOULD. TEACHING HAS BEEN DONE BY WOUND CARE NURSE. PATIENT TO DC TO HOME, RIDE AT BEDSIDE. CM TO FOLLOW AND ASSIST NEEDED. Machine Splitter: Eleonora Savanna Patient Name: SHILPA ORO Page [phone] at 1632 All edits/amendments must be made on the electronic document DICTATION DATE: 03/09/20 1631 NAILHEAD SETTER: ODILON 03/09/20 1631 RPT#: [id number] DC DATE: STATUS: ADM IN [facility] [address] [place] [address] END OF REPORT
[2020-03-09 16:55] VITALS: BP 132/69
[2020-03-09] MEDS ORDERED: NICODERM CQ1 EAC3 TOPICAL (17:28)
--- NOTE | 2020-03-09 18:24 | NUR ---
DISCHARGED PATIENT HOME VIA WHEELCHAIR WITH FAMILY. DISCONTINUED IV, CATHETER TIP INTACT. WENT OVER DISCHARGE INSTRUCTIONS WITH PATIENT, VERBALIZED UNDERSTANDING. SENT HOME OSTOMY SUPPLIES WITH PATIENT. DENIES ANYTHING FURTHER.
--- NOTE | 2020-03-10 09:04 | MORECARE ---
CASE MANAGEMENT DISCHARGE SUMMARY PATIENT: SHILPA ORO UNIT: [id number] ADM DATE: 03/08/20 AGE: 49 : 68 SEX: F ROOM/BED: D.2216 AUTHOR: GABBY GEE PHYSICIAN: REFERRING PHYSICIAN: LOS PARDO MD DATE OF SERVICE: 03/10/20 Discharge Plan Patient Name[facility] OR[facility] [facility] 1970 Planned Disposition: Anticipated Discharge Date: Discharge Date: 03/09/2020 Expected LOS: Initial Reviewer: [email or web address] Initial Review Date: 03/08/2020 Generated: 03/10/20 10:04 am Comments DCP- Discharge Planning Updated by [email or web address]: Eleonora Corrales on 03/09/20 3:[address] Patient Name: SHILPA ORO Admission Status: ER Accout number: [id number] Admission Date: 03-08-2020 : 1970 Admission Diagnosis: Attending: LOS PARDO Current LOS: 1 Anticipated DC Date: Planned Disposition: Primary Insurance: [facility] [employer] Discharge Planning Comments: Patient lives at a detention off [facility] where she is independent with her care. At discharge patient plans to return home and feels this is a safe discharge. CM discussed availability of home health, rehab services, and medical equipment. She uses [employer] supplies. DIANA RN WITH WOUND CARE SPOKE WITH PATIENT. WE ARE SENDING HER HOME WITH SEVERAL DAYS OF SUPPLIES. SHE IS CURRENTLY GETTING SUPPLIES FROM [employer] BUT SEEMS TO BE USING ALOT MORE SUPPLIES THAN SHE SHOULD. TEACHING HAS BEEN DONE BY WOUND CARE NURSE. PATIENT TO DC TO HOME, RIDE AT BEDSIDE. CM TO FOLLOW AND ASSIST NEEDED. Legal Recovery Specialist: Eleonora Corrales Last DP export: 03/09/20 3:31 pm Patient Name: SHILPA ORO Page [id number] at 0904 All edits/amendments must be made on the electronic document DICTATION DATE: 03/10/20 0904 WATERWORKS OPERATOR: ODILON 03/10/20903 RPT#: [id number] DC DATE:03/09/20 STATUS: DIS IN [facility] [address] [place] [address] END OF REPORT
== END 2020-03-09 18:28 | disposition home or self-care (01) | DRG 394 ==
LOC: D.ER 12:09 → D.MS 18:00
PROVIDERS: Family Medicine; ADMIT Family Medicine; ATTEND Family Medicine
DX: K94.09 Other complications of colostomy (principal); L03.311 Cellulitis of abdominal wall; Z91.19 Patient's noncompliance with other medical treatment and regimen

== ENCOUNTER 2020-03-14 19:15 | Emergency (ER) | payer MEDICARE ==
[~2020-03-14] VITALS: Ht 149.9 cm; Wt 37.2 kg
[~2020-03-14 19:15] MED LIST changes: +NICODERM CQ1 EAC3 TOPICAL; +NYSTATIN OINTME15 GM TOPICAL
[2020-03-14 19:26] VITALS: Ht 149.9 cm; Wt 37.2 kg
[2020-03-14] MEDS ORDERED: KENALOG 0.1 % 115 GM TOPICAL (20:15)
[2020-03-14 20:47] VITALS: BP 132/77
== END 2020-03-14 20:47 | disposition home or self-care (01) ==
LOC: D.ER 19:15
DX: L20.9 Atopic dermatitis, unspecified (principal); Z43.3 Encounter for attention to colostomy

== ENCOUNTER 2020-03-19 17:35 | Emergency (ER) | payer MEDICARE ==
[~2020-03-19] VITALS: Ht 149.9 cm; Wt 37.3 kg
[~2020-03-19 17:35] MED LIST changes: +KENALOG 0.1 % 115 GM TOPICAL
[2020-03-19 18:19] VITALS: Ht 149.9 cm; Wt 37.3 kg
[2020-03-19 20:23] VITALS: BP 110/70
== END 2020-03-19 19:54 | disposition home or self-care (01) ==
LOC: D.ER 17:35
DX: Z43.3 Encounter for attention to colostomy (principal); T85.848A Pain due to other internal prosthetic devices, implants and grafts, initial encounter

== ENCOUNTER 2020-04-11 13:18 | Emergency (ER) | payer MEDICARE ==
[~2020-04-11] VITALS: Ht 149.9 cm; Wt 31.8 kg
[2020-04-11 13:35] VITALS: Ht 149.9 cm; Wt 31.8 kg
[2020-04-11 15:10] VITALS: BP 139/87
== END 2020-04-11 15:10 | disposition home or self-care (01) ==
LOC: D.ER 13:18
DX: Z43.3 Encounter for attention to colostomy (principal)

== ENCOUNTER 2020-04-14 18:31 | Emergency (ER) | payer MEDICARE ==
[~2020-04-14] VITALS: Ht 149.9 cm; Wt 33.6 kg
--- NOTE | 2020-04-14 11:30 | NUR ---
DR. APONTE NOTIFIED AND REVIEWED PATIENT'S BEHAVIOR AND ASSESSMENT RESULTS. PATIENTN ISN A LOW RISK PER DR. APONTE. RESOURCES REVIEWED WITH PATIENT AND SHE VERBALIZED UNDERSTANDING.
[2020-04-14 18:53] VITALS: Ht 149.9 cm; Wt 33.6 kg
[2020-04-14 19:26] LABS: UDS - AMPHET NEGATIVE QUAL (NEGATIVE); UDS - BARB NEGATIVE QUAL (NEGATIVE); UDS - BENZO NEGATIVE QUAL (NEGATIVE); UDS - COCAINE NEGATIVE QUAL (NEGATIVE); UDS - OPIATE NEGATIVE QUAL (NEGATIVE); UDS - PCP NEGATIVE QUAL (NEGATIVE); UDS - THC NEGATIVE QUAL (NEGATIVE)
[2020-04-14 19:31] LABS: CALC OSMOLALITY 284 mosm/kg (275-300); CALCIUM 8.1 mg/dL (8.5-10.1); CARBON DIOXIDE 21.9 mmol/L (21.0-32.0); CHLORIDE - SERUM 109 mmol/L (98-107); CREATININE - SERUM 0.6 mg/dL (0.6-1.3); GLUCOSE 108 mg/dL (74-106); POTASSIUM - SERUM 3.2 mmol/L (3.5-5.1); SODIUM 142 mmol/L (136-145); UREA NITROGEN 14 mg/dL (7-18); eGFR NON AFRICAN AMERICAN > 90 mL/min (90-120)
[2020-04-14 19:36] LABS: BASOPHILS 0.6 % (0-2); EOSINOPHILS 2.3 % (0-7); HEMATOCRIT 32.2 % (36.0-48.0); HEMOGLOBIN 10.3 g/dL (12-16); IMMATURE GRANULOCYTES 0.2 % (0-5); LYMPHOCYTES 36.6 % (15-50); MCH 25.4 pg (26.0-34.0); MCV 79.3 fL (80.0-100.0); MEAN PLATELET VOLUME 8.6 fL (7.4-10.4); MONOCYTES 9.1 % (2-11); NEUTROPHILS 51.2 % (40-80); PLATELET COUNT 317 10x3/uL (130-400); RBC 4.06 10x6/uL (4.00-5.40); WBC 6.5 10x3/uL (4.8-10.8)
[2020-04-14 19:37] LABS: ALBUMIN 3.4 g/dL (3.4-5.0); ALKALINE PHOSPHATASE 52 U/L (30-120); ALT (SGPT) 17 U/L (10-68); BILIRUBIN - TOTAL 0.28 mg/dL (0.2-1.3); MAGNESIUM - SERUM 1.5 mg/dL (1.8-2.4); PROTEIN - SERUM 6.8 g/dL (6.4-8.2)
[2020-04-14 20:05] LABS: BILIRUBIN NEGATIVE (NEGATIVE); GLUCOSE NEGATIVE (NEGATIVE); KETONE NEGATIVE (NEGATIVE); NITRITE POSITIVE (NEGATIVE); UROBILINOGEN NORMAL (NORMAL)
[2020-04-14 20:07] LABS: BACTERIA MANY /hpf (NEGATIVE); EPITHELIAL CELLS 0-5 /hpf (0-5); RED CELLS - URINE 0-5 /hpf (0-5); WHITE CELLS - URINE 0-5 /hpf (NEGATIVE)
[2020-04-15 00:53] VITALS: BP 109/60
== END 2020-04-15 00:53 ==
LOC: D.ER 18:31
PROVIDERS: Family Medicine
DX: Z76.5 Malingerer [conscious simulation] (principal); F32.9 Major depressive disorder, single episode, unspecified; F43.9 Reaction to severe stress, unspecified; R45.851 Suicidal ideations

== ENCOUNTER 2020-05-04 13:44 | Emergency (ER) | payer MEDICARE ==
[~2020-05-04] VITALS: Ht 149.9 cm; Wt 30.0 kg
[2020-05-04 13:55] VITALS: Ht 149.9 cm; Wt 30.0 kg
[2020-05-04] MEDS ORDERED: ABILIFY10 MG PO (14:01)
[2020-05-04] MEDS ORDERED: BACTRIM DS TAB1 EAC1 PO (15:53)
[2020-05-04 19:16] VITALS: BP 113/66
== END 2020-05-04 17:05 | disposition home or self-care (01) ==
LOC: D.ER 13:44
DX: Z43.3 Encounter for attention to colostomy (principal)